=== PATIENT | female | born 1965 ===

== ENCOUNTER 2023-04-25 00:38 | Emergency (ER) | payer OTHER ==
[~2023-04-25] VITALS: Ht 167.6 cm; Wt 82.5 kg
[2023-04-25 01:30] VITALS: PULSE 66; RESP 18; O2SAT 98
[2023-04-25] MEDS ORDERED: SODIUM CHLORIDE 0.9% 1,000 ML IV ONE (01:45)
[2023-04-25] MEDS ORDERED: VANCOMYCIN 1GM/250ML 250 ML IV ONE (01:45)
[2023-04-25] MEDS ORDERED: cefTRIAXone 1GM/50ML D5W 50 ML IV ONE (01:45)
[2023-04-25] MEDS ORDERED: IOHEXOL 300 MG/ML 100ML BOTTLE IJ ONE (01:53)
[2023-04-25 02:24] LABS: Basophils # (auto) 0.1 10 ^3/uL (0-0.2); Eosinophils # (auto) 0.2 10 ^3/uL (0-0.8); Eosinophils % (auto) 2.8 % (0.0-7.0); Hematocrit 39.1 % (36.0-46.0); Hemoglobin 12.8 g/dL (12.2-16.2); Lymphocytes # (auto) 1.6 10 ^3/uL (0.4-5.4); Lymphocytes % (auto) 25.9 % (10.0-50.0); Mean Corpuscular Hemoglobin 28.7 pg (28.0-32.0); Mean Corpuscular Hgb Conc. 32.8 g/dL (32.0-36.0); Mean Corpuscular Volume 87.4 fL (80.0-100.0); Monocytes # (auto) 0.7 10 ^3/uL (0-1.3); Monocytes % (auto) 11.6 % (0.0-12.0); Neutrophils # (auto) 3.5 10 ^3/uL (1.6-8.6); Neutrophils % (auto) 58.7 % (37.0-80.0); Nucleated Red Blood Cells % 0.2 %; Red Blood Cells 4.48 10^6/uL (4.0-5.20); Red Cell Distribution Width 13.4 % (11.8-14.3)
[2023-04-25 02:44] LABS: Albumin 3.3 g/dL (3.4-5.0); Calcium 8.7 mg/dL (8.5-10.1)
[2023-04-25 02:52] LABS: BUN/Creatinine Ratio 17.8 (10.0-20.0); Bilirubin, Total 0.3 mg/dL (0.2-1.0); CRP High Sensitivity 1.46 mg/dL (< 0.3); Total Protein 7.2 g/dL (6.4-8.2)
[2023-04-25 03:05] LABS: Erythrocyte Sedimentation Rate 20 mm/hr (0-20)
[2023-04-25 07:47] VITALS: PULSE 65; RESP 17; O2SAT 98
[2023-04-25 09:25] VITALS: BP 136/73; PULSE 54; RESP 16; TEMP 97.8; O2SAT 97
== END 2023-04-25 09:55 | disposition short-term general hospital (02) ==
LOC: ER 00:38
DX: L03.113 Cellulitis of right upper limb (principal); L02.413 Cutaneous abscess of right upper limb
CPT/HCPCS: 36415; 71260; 80053; 83605; 85025; 85652; 86141; 87040; 96365; 96366; 96368; 99285; J0696; J3370; Q9967